=== PATIENT | male | born 1960 | race Caucasian/White ===

== ENCOUNTER 2017-06-02 10:39 | Emergency (ER) | payer MEDICARE, BC ==
--- NOTE | 2017-06-02 10:59 | ERNOTE ---
Upper Extremity HPI - General Extremities Pain Location: elbow: left - swelling around the bursa Time Seen by Provider: 06/02/17 10:49 Source: patient Exam Limitations: no limitations - Immun/Allergies/Home Medications Immunizations: IMMUNIZATION HX Immunizations Up to Date Yes History of Influenza Vaccine No Hx Pneumococcal Vaccination No Allergies/Adverse Reactions: Allergies Allergy/AdvReac Type Severity Reaction Status Date / Time gabapentin [From Neurontin] Allergy Unknown Verified 06/02/12 10:24 Home Medications: HOME MEDICATIONS Ibuprofen [Motrin] 200 mg PO Q8H PRN 03/28/13 [Last Taken Unknown] Omeprazole [Prilosec] 40 mg PO DAILY 03/28/13 [Last Taken Unknown] Pregabalin [Lyrica] 100 mg PO BID 03/28/13 [Last Taken Unknown] Zolpidem Tartrate [ZOLPIDEM (Ambien)] 10 mg PO DAILY 03/28/13 [Last Taken Unknown] - History of Present Illness Narrative: Approximately 3 weeks ago patient started noticing swelling at the left elbow area. Patient states the pain is only present if he bumps it or tries to lean on the elbow. Occurred: other - 3 weeks ago Severity: moderate - with any pressure Method of Injury: Reports: no apparent injury Loss of Consciousness: Reports: no loss of consciousness Other Injuries: Reports: none Review of Systems - Review of Systems Constitutional: Present: See HPI EYE: Present: no symptoms reported ENT: Present: no symptoms reported Respiratory: Present: no symptoms reported Cardiology: Present: no symptoms reported Gastrointestinal/Abdominal: Present: no symptoms reported Genitourinary: Present: no symptoms reported Musculoskeletal: Present: See HPI Skin: Present: no symptoms reported Neurological: Present: no symptoms reported Endocrine: Present: no symptoms reported Hematologic/Lymphatic: Present: no symptoms reported Psych: Present: no symptoms reported - Patient's Past Medical History Patient History - Medical: No pertinent hx Patient History - Cardiac/Respiratory: No pertinent hx, Hyperlipidemia Patient History - Cancer: No Hx of Cancer Patient History - Surgical Procedures: Orthopedic Patient History - Other: Other - Social History Living Situations: spouse Abuse History: No History of abuse Psych History: No pertinent hx Smoking Status: Former smoker Have you smoked in the past 12 months: No Do you dip or chew tobacco: No Alcohol Use: none Drug Use: none - Immunizations Immunizations Up to Date: Yes Hx Pneumococcal Vaccination: No History of Influenza Vaccine: No Physical Exam - Physical Exam General Appearance: Present: wd/wn, alert, no apparent distress Head Exam: Present: normal inspection, no evidence of injury Eye Exam: Normal inspection: bilateral, PERRL: bilateral Ears, Nose, Throat: Present: normal ENT inspection, H, normal pharynx Neck: Present: normal inspection, nontender Respiratory: Present: no respiratory distress, normal breath sounds, no accessory muscle use, chest nontender, lungs clear Cardiovascular/Chest: Present: regular rate, rhythm, no murmur, normal peripheral pulses Gastrointestinal/Abdominal: Present: normal bowel sounds, nontender, nondistended, soft, no organomegaly Rectal Exam: Present: deferred Back Exam: Present: normal inspection, normal range of motion Extremity Exam: Present: normal range of motion, other - patient appears to have fairly significant swelling into the left olecranon bursa, no evidence of any erythema or infectious entity and pain is only present with palpation Neurological Exam: Present: alert, oriented, normal mood/affect Skin Exam: Present: normal color, warm/dry Lymphatic Exam: Present: no adenopathy ED Progress - Vital Signs Patient's Vital Signs:: I have reviewed the patient's vital signs. Vital Signs: Vital Signs 06/02/17 10:46 Temperature 36.5 C Pulse Rate 90 Respiratory 20 Rate Blood Pressure 138/83 O2 Sat by Pulse 99 Oximetry - X-Ray X-Ray #1 X-Ray: elbow Interpretation: Reviewed by me - Progress/Reassessment Chief Complaint: Upper Extremity Injury/Problem Plan - Plan Plan: Patient will be referred to orthopedic surgery for their evaluation and possible treatment. I'm reluctant to start any nonsteroidals as the orthopedic surgeon may want to do an aspiration. Departure Clinical Impression: Olecranon bursitis of left elbow - Departure Disposition: Home self-care Condition: Good Instructions: Elbow Bursitis, [id number] Additional Instructions: Call Dr. Wesley's office for appointment Referrals: Arvin Wesley MD [Staff Physician] -
[2017-06-02 11:34] VITALS: BP 132/83
== END 2017-06-02 11:53 | disposition home or self-care (01) ==
LOC: ER 10:39
DX: M70.22 Olecranon bursitis, left elbow